=== PATIENT | female | born 1990 | race Caucasian/White ===

== ENCOUNTER 2017-02-23 08:38 | Emergency (ER) | payer MEDICAID ==
[~2017-02-23] VITALS: Ht 165.1 cm; Wt 56.7 kg
[2017-02-23 10:39] LABS: Urine Bacteria FEW /hpf (None Seen); Urine Blood 2+ /uL (Negative); Urine Specific Gravity 1.017 (1.001-1.035); Urine WBC 1 /hpf (0 - 5)
[2017-02-23 12:01] VITALS: BP 140/82
[2017-02-23] MEDS ORDERED: ONDANSETRON ODT 4 MG TAB PO ONE ×2 (13:19→13:30)
== END 2017-02-23 13:57 | disposition left against medical advice (07) ==
LOC: ER 08:38
DX: O03.9 Complete or unspecified spontaneous abortion without complication (principal); Z3A.09 9 weeks gestation of pregnancy
CPT/HCPCS: 76801; 76817; 81001; 99285; Q0162

== ENCOUNTER 2018-06-20 16:57 | Emergency (ER) | payer MEDICAID ==
[~2018-06-20] VITALS: Ht 172.7 cm; Wt 54.4 kg
[2018-06-20 18:40] LABS: Basophils # (auto) 0.1 uL; Eosinophils # (auto) 0.1 uL; Hemoglobin 10.5 g/dL (12.2-16.2); Lymphocytes # (auto) 1.6 uL; Monocytes # (auto) 0.8 uL; Nucleated Red Blood Cells % 0.1 %
[2018-06-20 18:41] LABS: Basophils % (auto) 0.5 % (0.0-2.0); Eosinophils % (auto) 0.6 % (0.0-7.0); Hematocrit 32.4 % (36.0-46.0); Lymphocytes % (auto) 12.3 % (10.0-50.0); Mean Corpuscular Hemoglobin 25.8 pg (28.0-32.0); Mean Corpuscular Hgb Conc. 32.4 g/dL (32.0-36.0); Mean Corpuscular Volume 79.7 fL (80.0-100.0); Monocytes % (auto) 6.2 % (0.0-12.0); Neutrophils # (auto) 10.3 uL; Neutrophils % (auto) 80.4 % (37.0-80.0); Platelet Count (auto) 387 10^3/uL (140-450); Red Blood Cells 4.06 10^6/uL (4.0-5.20); Red Cell Distribution Width 16.9 % (11.8-14.3); White Blood Cell 12.9 10^3/uL (4.4-10.8)
[2018-06-20 18:51] LABS: Albumin 2.3 g/dL (3.4-5.0)
[2018-06-20 18:54] LABS: BUN/Creatinine Ratio 12.2; Bilirubin, Total 0.2 mg/dL (0.2-1.0); Potassium 2.9 mmol/L (3.5-5.1); Total Protein 6.3 g/dL (6.4-8.2)
[2018-06-20] MEDS ORDERED: METHYLERGONOVINE MALEATE 0.2 MG/ML AMP IM ONE (19:00)
[2018-06-20] MEDS ORDERED: cefTRIAXone 1GM/50ML D5W 50 ML IV ONE (19:00)
[2018-06-20] MEDS ORDERED: SODIUM CHLORIDE 0.9% 1,000 ML IV ONE (19:15)
[2018-06-20] MEDS ORDERED: POTASSIUM CHL 20 Meq TABLET PO ONE ×2 (19:15→22:30)
[2018-06-20] MEDS ORDERED: MORPHINE SULFATE 4 MG/ML SYR/VIAL IV ONE (19:15)
[2018-06-20] MEDS ORDERED: ONDANSETRON HCL 4 MG/2 ML VIAL IV ONE (19:15)
[2018-06-20 19:44] LABS: INR 0.84 (0.9-1.15); Partial Thromboplastin Time 23.2 sec (23.78-33.04); Prothrombin Time 9.1 sec (9.27-12.13)
[2018-06-20 21:42] VITALS: BP 132/80
== END 2018-06-20 22:47 | disposition home or self-care (01) ==
LOC: EDBD 16:57 → ER 16:57
DX: O72.1 Other immediate postpartum hemorrhage (principal); N93.8 Other specified abnormal uterine and vaginal bleeding
CPT/HCPCS: 36415; 76856; 80053; 85025; 85610; 85730; 86850; 86900; 86901; 96365; 96372; 96375; 99284; J0696; J2210; J2270; J2405; J7030

== ENCOUNTER 2020-06-15 08:49 | Inpatient (IN) | payer MEDICAID ==
[~2020-06-15] VITALS: Ht 157.5 cm; Wt 49.1 kg
[2020-06-15 09:49] LABS: Basophils # (auto) 0.1 10 ^3/uL (0-0.2); Basophils % (auto) 0.4 % (0.0-2.0); Eosinophils # (auto) 0.1 10 ^3/uL (0-0.8); Eosinophils % (auto) 0.5 % (0.0-7.0); Hematocrit 30.9 % (36.0-46.0); Hemoglobin 10.3 g/dL (12.2-16.2); Lymphocytes # (auto) 1.4 10 ^3/uL (0.4-5.4); Lymphocytes % (auto) 8.2 % (10.0-50.0); Mean Corpuscular Hgb Conc. 33.3 g/dL (32.0-36.0); Mean Corpuscular Volume 86.9 fL (80.0-100.0); Monocytes # (auto) 0.9 10 ^3/uL (0-1.3); Neutrophils # (auto) 14.9 10 ^3/uL (1.6-8.6); Neutrophils % (auto) 85.9 % (37.0-80.0); Platelet Count (auto) 391 10^3/uL (140-450); Red Blood Cells 3.55 10^6/uL (4.0-5.20); Red Cell Distribution Width 13.3 % (11.8-14.3); White Blood Cell 17.3 10^3/uL (4.4-10.8)
[2020-06-15 09:56] LABS: Albumin 3.2 g/dL (3.4-5.0); Calcium 8.3 mg/dL (8.5-10.1); Potassium 3.7 mmol/L (3.5-5.1)
[2020-06-15 09:59] LABS: BUN/Creatinine Ratio 8.5; Bilirubin, Total 0.4 mg/dL (0.2-1.0); Total Protein 6.1 g/dL (6.4-8.2)
[2020-06-15] MEDS ORDERED: SODIUM CHLORIDE 0.9% 1,000 ML IV ONE (10:15)
[2020-06-15] MEDS ORDERED: SODIUM CHLORIDE 0.9% 500 ML IVB ONE (10:15)
[2020-06-15 10:50] LABS: Magnesium 2.2 mg/dL (1.6-2.6)
[2020-06-15 11:08] LABS: INR 1.05 (0.9-1.15); Partial Thromboplastin Time 23.2 sec (23.0-31.2)
[2020-06-15 13:14] LABS: Urine Bacteria NONE SEEN /hpf (None Seen); Urine Blood 3+ /uL (Negative); Urine Hyaline Cast MOD /lpf (0 - 2); Urine Mucus MODERATE (None Seen); Urine Specific Gravity 1.016 (1.001-1.035); Urine WBC 6 /hpf (0 - 5)
[2020-06-15 13:29] LABS: Amphetamine Screen, Urine POSITIVE (NEGATIVE); Barbiturate Scree,Urine NEGATIVE (NEGATIVE); Benzodiazephine Screen, Urine NEGATIVE (NEGATIVE); Cannabinoid Screen, Urine POSITIVE (NEGATIVE); Cocaine Screen, Urine NEGATIVE (NEGATIVE); Opiate Scree,Urine NEGATIVE (NEGATIVE); Phencyclidine Screen, Urine NEGATIVE (NEGATIVE)
[2020-06-15] MEDS ORDERED: cefTRIAXone 1GM/50ML D5W 50 ML IV ONE (13:30)
[2020-06-15] MEDS ORDERED: ACETAMINOPHEN 500 MG TAB PO PRN (13:45)
[2020-06-15] MEDS ORDERED: NITROGLYCERIN 0.4 MG SL TAB SL PRN (13:45)
[2020-06-15] MEDS ORDERED: ONDANSETRON HCL 4 MG/2 ML VIAL IV PRN (13:45)
[2020-06-15] MEDS ORDERED: HYDROcodone-ACET 5/325MG TAB PO PRN (13:45)
[2020-06-15] MEDS ORDERED: MORPHINE SULF INJ 2 MG/ML SYRINGE 1ML IV PRN (13:45)
[2020-06-15] MEDS ORDERED: ALBUTEROL SULF 2.5 MG/0.5ML(0.5%) NEB SOLN NEB PRN (13:45)
[2020-06-15] MEDS ORDERED: IPRATROPIUM BROM 0.5 MG/2.5ML INH SOL NEB PRN (13:45)
[2020-06-15] MEDS ORDERED: VANCOMYCIN PER PHARMACY 0 MG IV SCH (13:45)
[2020-06-15] MEDS ORDERED: ONDANSETRON HCL 4 MG/2 ML VIAL ONE (13:49)
[2020-06-15] MEDS ORDERED: fentaNYL CITRATE 100 MCG/2 ML VL ONE (13:49)
[2020-06-15] MEDS ORDERED: SODIUM CHLORIDE LOCK 10 ML ONE (13:49)
[2020-06-15] MEDS ORDERED: MIDAZOLAM HCL 1MG/1ML-2 ML VIAL ONE (13:49)
[2020-06-15] MEDS ORDERED: PROPOFOL 10 MG/ML 20 ML IV ONE (13:49)
[2020-06-15] MEDS ORDERED: MEPERIDINE HCL (25 MG/ML) 1ML VIAL ONE (13:49)
[2020-06-15] MEDS: LACTATED RINGER'S 1,000 ML IV SCH ×3 (13:53→22:51)
[2020-06-15] MEDS ORDERED: METOCLOPRAMIDE HCL 5MG/ml INJ 2ml VIAL IV PRN (14:15)
[2020-06-15] MEDS ORDERED: HYDROmorphone HCL 2 MG/ML VL IV PRN (14:15)
[2020-06-15] MEDS ORDERED: MORPHINE SULFATE 4 MG/ML SYR/VIAL IV PRN (14:15)
[2020-06-15] MEDS ORDERED: KETOROLAC TROMETH 30 MG/ML 1ML VIAL IV ONE (14:15)
[2020-06-15] MEDS ORDERED: PANTOPRAZOLE 40 MG/10 ML VIAL INJ IV ONE (14:15)
[2020-06-15] MEDS ORDERED: PIPERACILLIN-TAZOB 3.375GM 100 ML IV ONE (14:15)
[2020-06-15 14:26] VITALS: BP 121/78
[2020-06-15] MEDS ORDERED: OXYTOCIN 10UNIT/ML 1ML VIAL ONE ×2 (14:34→15:53)
[2020-06-15] MEDS ORDERED: LACT. RINGERS/OXYTOCIN 20UNITS 1,000 ML IV ONE (16:00)
[2020-06-15] MEDS: VANCOMYCIN 750mg/250ml 250 ML IV SCH (17:00)
[2020-06-15 18:34] VITALS: BP 125/71
[2020-06-15] MEDS: PIPERACILLIN-TAZOB 3.375GM 100 ML IV SCH (20:44)
[2020-06-15 21:59] VITALS: BP 105/71
[2020-06-16] MEDS: PIPERACILLIN-TAZOB 3.375GM 100 ML IV SCH ×2 (00:01→05:41)
[2020-06-16] MEDS: VANCOMYCIN 750mg/250ml 250 ML IV SCH (00:51)
[2020-06-16 05:16] VITALS: BP 102/57
[2020-06-16 07:35] LABS: Basophils # (auto) 0 10 ^3/uL (0-0.2); Basophils % (auto) 0.6 % (0.0-2.0); Eosinophils # (auto) 0.1 10 ^3/uL (0-0.8); Lymphocytes # (auto) 1.6 10 ^3/uL (0.4-5.4); White Blood Cell 5.5 10^3/uL (4.4-10.8)
[2020-06-16 07:37] LABS: Eosinophils % (auto) 1.8 % (0.0-7.0); Hematocrit 20.5 % (36.0-46.0); Lymphocytes % (auto) 28.8 % (10.0-50.0); Mean Corpuscular Hemoglobin 29.5 pg (28.0-32.0); Mean Corpuscular Hgb Conc. 34.1 g/dL (32.0-36.0); Mean Corpuscular Volume 86.5 fL (80.0-100.0); Monocytes # (auto) 0.5 10 ^3/uL (0-1.3); Monocytes % (auto) 8.6 % (0.0-12.0); Neutrophils # (auto) 3.3 10 ^3/uL (1.6-8.6); Neutrophils % (auto) 60.2 % (37.0-80.0); Platelet Count (auto) 233 10^3/uL (140-450); Red Blood Cells 2.36 10^6/uL (4.0-5.20); Red Cell Distribution Width 12.8 % (11.8-14.3)
[2020-06-16 08:00] LABS: Potassium 3.4 mmol/L (3.5-5.1)
[2020-06-16 08:07] LABS: Albumin 2.3 g/dL (3.4-5.0); BUN/Creatinine Ratio 7.1; Bilirubin, Total 0.5 mg/dL (0.2-1.0); Calcium 7.2 mg/dL (8.5-10.1); Total Protein 4.5 g/dL (6.4-8.2)
[2020-06-16] MEDS ORDERED: PANTOPRAZOLE 40 MG/10 ML VIAL INJ IV SCH (10:00)
== END 2020-06-16 08:14 | disposition left against medical advice (07) | DRG 544 ==
LOC: ER 08:49 → EDBD 08:49 → TELE 13:37 → TELE-CENTR 18:06
PROVIDERS: ADMIT Nurse Practitioner Acute Care; ATTEND Nurse Practitioner Acute Care
PROC: 10D17ZZ Extraction of Products of Conception, Retained, Via Natural or Artificial Opening (ICD-10-PCS; principal; 2020-06-15 14:40)
DX: O03.4 Incomplete spontaneous abortion without complication (principal); R65.20 Severe sepsis without septic shock; E44.1 Mild protein-calorie malnutrition; N93.9 Abnormal uterine and vaginal bleeding, unspecified; R73.9 Hyperglycemia, unspecified; Z20.822 Contact with and (suspected) exposure to COVID-19; O03.37 Sepsis following incomplete spontaneous abortion; Z72.0 Tobacco use; Z53.29 Procedure and treatment not carried out because of patient's decision for other reasons
CPT/HCPCS: 36415; 76801; 76817; 80053; 80307; 81001; 83690; 83735; 84702; 85025; 85610; 85730; 86850; 86900; 86901; 87426; 96365; 96368; G0378; J0696; J2250; J2405; J2543; J2704

== ENCOUNTER 2021-07-03 19:28 | Emergency (ER) | payer MEDICAID ==
[~2021-07-03] VITALS: Ht 167.6 cm; Wt 54.4 kg
[2021-07-03] MEDS ORDERED: ONDANSETRON HCL 4 MG/2 ML VIAL IV ONE (19:30)
[2021-07-03] MEDS ORDERED: MORPHINE SULFATE 4 MG/ML SYR/VIAL IV ONE (19:30)
[2021-07-03] MEDS ORDERED: SODIUM CHLORIDE 0.9% 1,000 ML IVB ONE (19:30)
[2021-07-03 21:13] LABS: Basophils # (auto) 0.1 10 ^3/uL (0-0.2); Eosinophils # (auto) 0 10 ^3/uL (0-0.8); Lymphocytes # (auto) 1.9 10 ^3/uL (0.4-5.4); Mean Corpuscular Hgb Conc. 33.3 g/dL (32.0-36.0)
[2021-07-03 21:14] LABS: Basophils % (auto) 0.8 % (0.0-2.0); Eosinophils % (auto) 0.2 % (0.0-7.0); Hematocrit 33.3 % (36.0-46.0); Hemoglobin 11.1 g/dL (12.2-16.2); Lymphocytes % (auto) 10.4 % (10.0-50.0); Mean Corpuscular Volume 74.9 fL (80.0-100.0); Monocytes % (auto) 5.2 % (0.0-12.0); Neutrophils # (auto) 15.6 10 ^3/uL (1.6-8.6); Neutrophils % (auto) 83.4 % (37.0-80.0); Red Blood Cells 4.45 10^6/uL (4.0-5.20); Red Cell Distribution Width 16.6 % (11.8-14.3); White Blood Cell 18.7 10^3/uL (4.4-10.8)
[2021-07-03 21:28] LABS: INR 1.02 (0.9-1.15); Partial Thromboplastin Time 22.8 sec (23.6-33.0)
[2021-07-03 21:30] LABS: Albumin 3.3 g/dL (3.4-5.0); BUN/Creatinine Ratio 7.7; Calcium 8.4 mg/dL (8.5-10.1); Potassium 3.5 mmol/L (3.5-5.1)
[2021-07-03 21:33] LABS: Bilirubin, Total 0.3 mg/dL (0.2-1.0); Total Protein 6.9 g/dL (6.4-8.2)
[2021-07-04] MEDS ORDERED: SODIUM CHLORIDE 0.9% 1,000 ML IV ONE (01:45)
[2021-07-04 05:00] VITALS: BP 105/63
== END 2021-07-04 06:02 | disposition home or self-care (01) ==
LOC: ER 19:28 → EDBD 19:28 → ER 07-04 01:12
DX: O03.9 Complete or unspecified spontaneous abortion without complication (principal); O99.331 Smoking (tobacco) complicating pregnancy, first trimester; Z3A.08 8 weeks gestation of pregnancy
CPT/HCPCS: 36415; 76801; 80053; 84702; 85025; 85610; 85730; 86850; 86900; 86901; 93005; 96360; 96361; 99285; J7030

== ENCOUNTER 2024-06-21 08:35 | Emergency (ER) | payer MEDICAID ==
[~2024-06-21] VITALS: Ht 165.1 cm; Wt 59.6 kg
--- NOTE | 2024-06-21 08:48 | ED.PDOC ---
History of Present Illness HPI Comments 34F presents to the Er w/ prior hx of a UTI for which the pt is currently taking medication for, M3;SHx of x2, Cholecystectomy and the c/c of ABN Vag Bleeding. Pt reports on currently being 5 and 1/2 weeks , and had spotting w/ light ramping pain last night onto light bleeding this morning. Denies chills, fever, N/V/D, SOB, CP. No other associated symptoms, modifiers, recent injuries or sick contacts present at this time. 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, Uterine Fibroids Family History Family History: Reviewed,noncontributory to illness, Family hx of HTN Social History Smoker: Cigarettes Alcohol: Denies ETOH Use Drugs: Denies Drug Use Lives In: Home Constitutional: denies: chills, diaphoresis, fatigue, fever, malaise, sweats, weakness, others EENTM: denies: blurred vision, double vision, ear bleeding, ear discharge, ear drainage, ear pain, ear ringing, eye pain, eye redness, hearing loss, mouth pain, mouth swelling, nasal discharge, nose bleeding, nose congestion, nose pain, photophobia, tearing, throat pain, throat swelling, voice changes, others Respiratory: denies: cough, hemoptysis, orthopnea, SOB at rest, shortness of breath, SOB with excertion, stridor, wheezing, others Cardiovascular: denies: chest pain, dizzy spells, diaphoresis, Dyspnea on exertion, edema, irregular heart beat, left arm pain, lightheadedness, palpitations, PND, syncope, others Gastrointestinal: reports: abdominal pain (light cramping); denies: abdomen distended, blood streaked bowels, constipated, diarrhea, dysphagia, difficulty swallowing, hematemesis, melena, nausea, poor appetite, poor fluid intake, rectal bleeding, rectal pain, vomiting, others Genitourinary: reports: abnormal vagina bleeding, (5 and 1/2 weeks); denies: burning, dyspareunia, dysuria, flank pain, frequency, hematuria, incontinence, pain, vagina discharge, urgency, others Neurological: denies: dizziness, fainting, headache, left sided numbness, left sided weakness, numbness, paresthesia, pre-existing deficit, right sided numbness, right sided weakness, seizure, speech problems, tingling, tremors, weakness, others Musculoskeletal: denies: back pain, gout, joint pain, joint swelling, muscle pain, muscle stiffness, neck pain, others Integumetry: denies: bruises, change in color, change in hair/nails, dryness, laceration, lesions, lumps, rash, wounds, others Allergic/Immunocompromised: denies: Difficulty Healing, Frequent Infections, Hives, Itching, others Hematologic/Lymphatic: denies: anemia, blood clots, easy bleeding, easy bruising, swollen glands, others Endocrine: denies: excessive hunger, excessive sweating, excessive thirst, excessive urination, flushing, intolerance to cold, intolerance to heat, unexplained weight gain, unexplained weight loss, others Psychiatric: denies: anxiety, bipolar disorder, depression, hopeless, panic disorder, schizophrenia, sleepless, suicidal, others All Other Systems: Reviewed and Negative Physical Exam General Appearance: No Apparent Distress HEENT: Normal ENT Inspection, Pharynx Normal, TMs Normal Neck: Full Range of Motion, Non-Tender, Normal, Normal Inspection Respiratory: Chest Non-Tender, Lungs Clear, No Accessory Muscle Use, No Respiratory Distress, Normal Breath Sounds Cardiovascular: No Edema, No JVD, No Murmur, No Gallop, Normal Peripheral Pulses, Regular Rate/Rhythm Breast Exam: Deferred Gastrointestinal: No Organomegaly, Non Tender, No Pulsatile Mass, Normal Bowel Sounds, Soft Genitalia: Deferred Pelvic: Deferred Rectal: Deferred Extremities: No calf tenderness, Normal capillary refill, Normal inspection, Normal range of motion, Non-tender, No pedal edema Musculoskeletal : Apperance: Normal Neurologic: Alert, 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 Was a procedure done?: No Differential Dx Considerations may include: Missed , generalized weakness X-Ray, Labs, Meds, VS Vital Signs Date Time Temp Pulse Resp B/P (MAP) Pulse Ox O2 Delivery O2 Flow Rate FiO2 06/21/24 11:55 70 17 98 Room Air* 0 21 06/21/24 11:55 98.8 70 17 117/79 (92) 98 98.8 06/21/24 08:40 97.7 84 18 131/89 (103) 100 97.7 Lab Test 06/21/24 12:10 06/21/24 10:36 Range/Units Urine Color Light-yellow Yellow Urine Clarity Clear Clear Urine pH 6.5 5.0-9.0 Urine Specific [place] 1.015 1.001-1.035 Urine Protein Negative Negative Urine Ketones Negative Negative Urine Blood 2+ H Negative /uL Urine Nitrite Negative Negative Urine Bilirubin Negative Negative Urine Urobilinogen Normal Negative mg/dL Urine Leukocyte Esterase Negative Negative /uL Urine RBC 1 0 - 4 /hpf Urine Microscopic WBC 1 0-5 /HPF Urine Squamous Epithelial Cells Few <5 /hpf Urine Bacteria Few H None Seen /hpf Urine Mucus Few None Seen Urine Glucose Normal Normal mg/dL Beta HCG, Quantitative 1771.7 H 1.5-4.2 mIU/mL The quantitative hCG is 1771 The urine test is negative for a UTI The ultrasound of the pelvis shows: IMPRESSION: No intrauterine or ectopic is seen at this time. Follow-up by trending beta HCGs and follow-up ultrasound in 14 days. At this time, the patient will be discharged to follow up with the primary care doctor The patient will return to the emergency department's condition worsens Images Reviewed?: Images reviewed and evaluated by me Time of 1ST Reevaluation: 09:15 Reevaluation 1ST: Unchanged Patient Education/Counseling: Diagnosis, Treatment, Prognosis, Need For Follow Up Family Education/Counseling: No Family Present Departure 1 Departure Time of Disposition: 12:45 Impression: Primary Impression: Missed Disposition: 01 HOME / SELF CARE / HOMELESS Condition: Fair e-Prescriptions No Active Prescriptions or Reported Meds Discharged With: Self Critical Care Note Critical Care Time?: No Stability Stability form required: No Heart Score Heart Score: Heart Score Response (Comments) Value History N/A 0 EKG N/A 0 Age N/A 0 Risk Factors N/A 0 Troponin N/A 0 Total 0 I personally scribed for MUSTAPHA GIRON MD ([email or web address]) on 06/21/24 at 08:48. Electronically submitted by Leonid Crarasco ([email or web address]). MUSTAPHA GIRON MD June 21, 2024 08:48
[2024-06-21 11:55] VITALS: BP 117/79; PULSE 70; RESP 17; TEMP 98.8; O2SAT 98
[2024-06-21 12:25] LABS: Urine Bacteria FEW /hpf (None Seen); Urine Blood 2+ /uL (Negative); Urine Clarity Clear (Clear); Urine Color Light-Yellow (Yellow); Urine Mucus FEW (None Seen); Urine Protein, UAD Negative (Negative); Urine Specific Gravity 1.015 (1.001-1.035); Urine Squamous Epithelial Cell FEW /hpf (<5); Urine Urobilinogen Normal (Negative); Urine WBC 1 /HPF (0-5); Urine pH 6.5 (5.0-9.0)
--- NOTE | 2024-06-21 12:32 | DVH ---
OBSTETRIC ULTRASOUND PRIOR TO 14 WEEKS CLINICAL INDICATION: bleeding and pain beta-hCG 1771 TECHNIQUE: Multiple grayscale ultrasound images were obtained of the pelvis via transabdominal and tr ansvaginal approach for obstetric evaluation. Limited color Doppler and spectral Doppler acquisitions were also obtained. COMPARISON: OB ULTRASOUND COMP LESS 14WKS on DOS: 07/03/21 FINDINGS: Uterus: 10.3 x 5.6 x 4.7 cm. The endometrium measures 5 mm. No intrauterine gestational sac No intrau terine . There are small hypoechoic and anechoic fibroids in the fundus, largest measuring u p to 7 mm. Right adnexa: right ovary 3.7 x 2.8 x 2.2 cm. Normal arterial blood flow in the ovary. No right adnex al mass seen. Left adnexa: left ovary 4.6 x 2.7 x 2.1 cm. Normal arterial blood flow in the ovary. No left adnexal mass seen. There is a hemorrhagic cyst in the left ovary measuring 1.7 cm. Other: Mild ascites in the pelvis likely physiologic. IMPRESSION: No intrauterine or ectopic is seen at this time. Follow-up by trending beta HCGs and follow -up ultrasound in 14 days.
== END 2024-06-21 15:00 | disposition home or self-care (01) ==
LOC: ER 08:35
DX: O02.1 Missed abortion (principal); O99.331 Smoking (tobacco) complicating pregnancy, first trimester; Z90.49 Acquired absence of other specified parts of digestive tract; Z98.890 Other specified postprocedural states
CPT/HCPCS: 36415; 76801; 76817; 81001; 84702